=== PATIENT | male | born 1940 | race Caucasian/White ===

== ENCOUNTER 2017-03-11 15:42 | Outpatient (CLI) | payer MEDICARE, MEDICAID | END 2017-03-11 23:59 | disposition home or self-care (01) | LOC: RAD 15:42 | PROVIDERS: ATTEND Surgery | DX: M25.532 Pain in left wrist (principal) | CPT/HCPCS: 73110 ==

== ENCOUNTER 2017-10-11 10:32 | Outpatient (CLI) | payer MEDICARE, MEDICAID ==
[~2017-10-11] VITALS: Ht 177.8 cm; Wt 86.2 kg
[2017-10-11 11:36] LABS: BASOPHILS % (AUTO) 0.3 % (0-1); EOSINOPHILS # (AUTO) 0.1 X10'3 (0-0.9); EOSINOPHILS % (AUTO) 1.3 % (0-6); LYMPHOCYTES # (AUTO) 0.8 X10'3 (1.1-4.8); LYMPHOCYTES % (AUTO) 16.8 % (21-51); MEAN CORPUSCULAR HEMOGLOBIN 32.4 PG (27.0-31.0); MEAN CORPUSCULAR HGB CONC 33.4 % (33.0-36.5); MEAN PLATELET VOLUME 6.3 FL (7.4-10.4); MONOCYTES # (AUTO) 0.7 X10'3 (0-0.9); MONOCYTES % (AUTO) 16.2 % (2-12); NEUTROPHILS # (AUTO) 2.9 X10'3 (1.8-7.7); NEUTROPHILS % (AUTO) 65.4 % (42-75); PRE OP HEMATOCRIT 52.1 % (42.0-52.0); PRE OP HEMOGLOBIN 17.4 g/dL (14.0-17.9); PRE OP PLATELET COUNT 200 X10'3 (140-440); RED BLOOD COUNT 5.37 X10'6 (4.70-6.10); RED CELL DISTRIBUTION WIDTH 15.4 % (11.5-14.5)
[2017-10-11 11:55] LABS: ALBUMIN 3.4 G/DL (3.4-5.0); ALBUMIN/GLOBULIN RATIO 0.8 (1.1-1.5); ALKALINE PHOSPHATASE 94 IU/L (46-116); BLOOD UREA NITROGEN 7 MG/DL (7-18); BUN/CREATININE RATIO 7.7 (5.4-32.0); CALCIUM 8.6 MG/DL (8.5-10.1); CHLORIDE 87 MMOL/L (99-107); CREATININE 0.91 MG/DL (0.60-1.10); PRE OP ALT 50 U/L (30-65); PRE OP ANION GAP 7 (8-16); PRE OP AST 43 U/L (10-37); PRE OP BILIRUB, TOTAL 0.9 MG/DL (0.0-1.0); PRE OP GLUCOSE 103 MG/DL (70-104); PRE OP POTASSIUM 4.7 MMOL/L (3.4-5.1); TOTAL CARBON DIOXIDE 24.8 MMOL/L (24-32); TOTAL PROTEIN 7.5 G/DL (6.4-8.2); eGFR 81 ML/MIN
[2017-10-11 11:56] LABS: PRE OP SODIUM 119 MMOL/L (135-145)
[2017-10-11] MEDS ORDERED: LISI10TA4 PO (12:05)
[2017-10-11] MEDS ORDERED: SPIR50TA5 PO (12:05)
[2017-10-11] MEDS ORDERED: OMEP40CA37 PO (12:05)
[2017-10-11] MEDS ORDERED: VIT B 6 PO (15:59)
[2017-10-11] MEDS ORDERED: OMEG100T PO (15:59)
[2017-10-11] MEDS ORDERED: MULT-38 PO (15:59)
[2017-10-11] MEDS ORDERED: SODI1TAB23 PO (15:59)
[2017-10-11] MEDS ORDERED: ASPI-529 PO (15:59)
[2017-10-18] MEDS ORDERED: ringers solution, lacted 1,000 ML IV SCH (05:00)
[2017-10-18] MEDS ORDERED: Cefazolin 2GM/50ML dext iso,osmotic IVPB IV ONE (05:30)
[2017-10-18] MEDS ORDERED: famotidine 20mg tablet PO ONE (05:30)
== END 2017-10-11 23:59 | disposition home or self-care (01) ==
LOC: PRE-OP 10:32 → EDSTATUS 10-18 08:45
PROVIDERS: ATTEND Orthopaedic Surgery Hand Surgery
DX: Z01.812 Encounter for preprocedural laboratory examination (principal); S52.502P Unspecified fracture of the lower end of left radius, subsequent encounter for closed fracture with malunion; M25.532 Pain in left wrist; M12.532 Traumatic arthropathy, left wrist
CPT/HCPCS: 36415; 80053; 85025; 93005

== ENCOUNTER 2017-10-30 20:34 | Inpatient (IN) | payer MEDICARE, MEDICAID ==
[~2017-10-30] VITALS: Ht 180.3 cm; Wt 83.4 kg
[~2017-10-30 20:34] MED LIST: ASPI-529 PO; LISI10TA4 PO; MULT-38 PO; OMEG100T PO; OMEP40CA37 PO; SODI1TAB23 PO; SPIR50TA5 PO; VIT B 6 PO
[2017-10-30] MEDS ORDERED: CYAN50005 PO (23:02)
[2017-10-30] MEDS ORDERED: ALLO100T PO (23:02)
[2017-10-30] MEDS ORDERED: morphine 4 MG/ML inj SYRINge IV ONE (23:25)
[2017-10-30] MEDS ORDERED: ondansetron/PF 4mg/2ml inj IV ONE (23:25)
[2017-10-30] MEDS ORDERED: dextrose 5%-normal saline 1,000 ML IV SCH (23:25)
[2017-10-30] MEDS ORDERED: thiamine 100mg/ml 2ml inj. IV ONE (23:25)
[2017-10-30 23:43] LABS: BASOPHILS % (AUTO) 0.4 % (0-1); EOSINOPHILS # (AUTO) 0.1 X10'3 (0-0.9); EOSINOPHILS % (AUTO) 1.3 % (0-6); HEMATOCRIT 50.9 % (42.0-52.0); HEMOGLOBIN 16.6 g/dl (14.0-17.9); LYMPHOCYTES # (AUTO) 1.2 X10'3 (1.1-4.8); LYMPHOCYTES % (AUTO) 20.9 % (21-51); MEAN CORPUSCULAR HGB CONC 32.7 % (33.0-36.5); MEAN PLATELET VOLUME 6.8 FL (7.4-10.4); MONOCYTES # (AUTO) 0.6 X10'3 (0-0.9); MONOCYTES % (AUTO) 11.6 % (2-12); NEUTROPHILS # (AUTO) 3.7 X10'3 (1.8-7.7); NEUTROPHILS % (AUTO) 65.8 % (42-75); PLATELET COUNT 191 X10'3 (140-440); RED BLOOD COUNT 5.19 X10'6 (4.70-6.10); RED CELL DISTRIBUTION WIDTH 15.6 % (11.5-14.5); WHITE BLOOD COUNT 5.6 X10'3 (4.5-11.0)
[2017-10-30 23:53] LABS: INR 1.1 INR; PARTIAL THROMBOPLASTIN TIME 28 SECONDS (22-32); PROTHROMBIN TIME 10.9 SECONDS (9.0-12.0)
[2017-10-30 23:59] LABS: ALANINE AMINOTRANSFERASE 36 U/L (12-78); ALBUMIN 3.3 G/DL (3.4-5.0); ALBUMIN/GLOBULIN RATIO 0.9 (1.1-1.5); ALKALINE PHOSPHATASE 81 IU/L (46-116); ANION GAP 6 (8-16); ASPARTATE AMINO TRANSFERASE 31 U/L (10-37); BILIRUBIN,TOTAL 0.6 MG/DL (0.1-1.0); BLOOD UREA NITROGEN 12 MG/DL (7-18); BUN/CREATININE RATIO 12.1 (5.4-32.0); CALCIUM 8.8 MG/DL (8.5-10.1); CHLORIDE 94 MMOL/L (99-107); CREATINE KINASE 84 U/L (39-308); CREATININE 0.99 MG/DL (0.60-1.10); ETHANOL < 0.010 GM/DL (0.0-0.010); GLUCOSE 106 MG/DL (70-104); LIPASE 99 U/L (73-393); MAGNESIUM 1.9 MG/DL (1.5-2.4); POTASSIUM 4.5 MMOL/L (3.5-5.1); SODIUM 128 MMOL/L (135-145); TOTAL CARBON DIOXIDE 27.6 MMOL/L (24-32); eGFR 73 ML/MIN
[2017-10-31 01:58] LABS: CLARITY,URINE CLEAR (Clear); COLOR,URINE YELLOW (Yellow); GLUCOSE, URINE NEGATIVE (Neg); KETONES,URINE TRACE mg/dl (Neg); LEUKOCYTE ESTERASE ,URINE NEGATIVE (Neg); NITRITES, URINE NEGATIVE (Neg); OCCULT BLOOD,URINE NEGATIVE (Neg); PH,URINE 6.5 (4.8-8.0); PROTEIN,URINE NEGATIVE (Neg); UROBILINOGEN,URINE 0.2 E.U/dL (0.2-1.0)
[2017-10-31 02:00] LABS: UA COLLECTION TYPE VOIDED
[2017-10-31] MEDS ORDERED: acetaminophen 325mg tablet PO PRN ×2 (02:00)
[2017-10-31] MEDS ORDERED: morphine 2 MG/ML inj. syringe IV PRN (02:00)
[2017-10-31] MEDS ORDERED: HYDROmorphone 1 mg/ml syringe IV PRN ×2 (02:00)
[2017-10-31] MEDS ORDERED: HYDROcodone/acetaminophen 5mg/325mg tablet PO PRN (02:00)
[2017-10-31] MEDS ORDERED: ondansetron/PF 4mg/2ml inj IV PRN (02:00)
[2017-10-31] MEDS ORDERED: bisacodyl 10mg suppository rectal RC PRN (02:00)
[2017-10-31] MEDS ORDERED: acetaminophen 650mg rectal suppository RC PRN (02:00)
[2017-10-31] MEDS ORDERED: mag hydrox/Alum hydrox/simeth 30ml oral suspension PO PRN (02:00)
[2017-10-31] MEDS ORDERED: diphenhydrAMINE 50 mg/ml inj IV PRN (02:00)
[2017-10-31] MEDS ORDERED: metoclopramide 5 mg/ml inj IV PRN (02:00)
[2017-10-31] MEDS ORDERED: diphenhydrAMINE 25mg capsule PO PRN (02:00)
[2017-10-31 02:01] LABS: URINE AMPHETAMINE SCREEN NEGATIVE (Neg); URINE BARBITUATE SCREEN NEGATIVE (Neg); URINE BENZODIAZEPINES SCREEN NEGATIVE (Neg); URINE CANNABINOID SCREEN NEGATIVE (Neg); URINE COCAINE SCREEN NEGATIVE (Neg); URINE METHADONE SCREEN NEGATIVE (Neg); URINE OPIATE SCREEN POSITIVE (Neg); URINE PHENCYCLIDINE SCREEN NEGATIVE (Neg)
[2017-10-31] MEDS: normal saline 1000ml 1,000 ML IV SCH ×3 (03:44→19:59)
[2017-10-31] MEDS: HYDROcodone/acetaminophen 10/325mg tab PO PRN ×3 (05:34→15:57)
[2017-10-31] MEDS: docusate sod 100mg capsule PO SCH ×2 (09:04→19:58)
[2017-10-31] MEDS: pantoprazole 40mg Tablet.DR PO SCH (09:05)
[2017-10-31] MEDS: aspirin 81mg tab.chew PO SCH (09:05)
[2017-10-31] MEDS: allopurinol 300 MG tablet PO SCH (09:06)
[2017-10-31] MEDS: spironolactone 25 MG tablet PO SCH (09:06)
[2017-10-31] MEDS: multivitamins, therapeutics tablet PO SCH (09:06)
[2017-10-31 11:00] VITALS: BP 147/92
[2017-10-31 16:00] VITALS: BP 152/83
[2017-10-31 19:00] VITALS: BP_SYST 149; BP_SYST 153; BP_DIAS 68; BP_DIAS 92
[2017-10-31] MEDS: morphine 2 MG/ML inj. syringe IV PRN (20:00)
[2017-10-31] MEDS ORDERED: temazepam 15mg capsule PO PRN (21:00)
[2017-10-31 23:00] VITALS: BP 160/93
[2017-11-01] MEDS: morphine 2 MG/ML inj. syringe IV PRN ×4 (00:33→20:09)
[2017-11-01 03:00] VITALS: BP 149/92
[2017-11-01 05:55] LABS: BASOPHILS % (AUTO) 0.8 % (0-1); EOSINOPHILS # (AUTO) 0.3 X10'3 (0-0.9); EOSINOPHILS % (AUTO) 4.5 % (0-6); HEMATOCRIT 46.6 % (42.0-52.0); HEMOGLOBIN 15.6 g/dl (14.0-17.9); LYMPHOCYTES # (AUTO) 1.1 X10'3 (1.1-4.8); LYMPHOCYTES % (AUTO) 19.4 % (21-51); MEAN CORPUSCULAR HEMOGLOBIN 32.3 PG (27.0-31.0); MEAN CORPUSCULAR HGB CONC 33.4 % (33.0-36.5); MEAN CORPUSCULAR VOLUME 96.8 FL (78-98); MEAN PLATELET VOLUME 7.4 FL (7.4-10.4); MONOCYTES # (AUTO) 0.6 X10'3 (0-0.9); MONOCYTES % (AUTO) 10.9 % (2-12); NEUTROPHILS # (AUTO) 3.8 X10'3 (1.8-7.7); NEUTROPHILS % (AUTO) 64.4 % (42-75); PLATELET COUNT 175 X10'3 (140-440); RED BLOOD COUNT 4.81 X10'6 (4.70-6.10); RED CELL DISTRIBUTION WIDTH 15.7 % (11.5-14.5); WHITE BLOOD COUNT 5.9 X10'3 (4.5-11.0)
[2017-11-01 06:00] VITALS: BP 145/93
[2017-11-01] MEDS: normal saline 1000ml 1,000 ML IV SCH ×2 (06:40→20:06)
[2017-11-01 06:45] LABS: ALANINE AMINOTRANSFERASE 28 U/L (12-78); ALBUMIN 2.7 G/DL (3.4-5.0); ALBUMIN/GLOBULIN RATIO 0.8 (1.1-1.5); ALKALINE PHOSPHATASE 83 IU/L (46-116); ANION GAP 6 (8-16); ASPARTATE AMINO TRANSFERASE 34 U/L (10-37); BILIRUBIN,TOTAL 0.5 MG/DL (0.1-1.0); BLOOD UREA NITROGEN 6 MG/DL (7-18); BUN/CREATININE RATIO 6.6 (5.4-32.0); CALCIUM 7.8 MG/DL (8.5-10.1); CHLORIDE 100 MMOL/L (99-107); CREATININE 0.91 MG/DL (0.60-1.10); GLUCOSE 88 MG/DL (70-104); SODIUM 133 MMOL/L (135-145); TOTAL CARBON DIOXIDE 26.6 MMOL/L (24-32); eGFR 81 ML/MIN
[2017-11-01] MEDS: spironolactone 25 MG tablet PO SCH (08:35)
[2017-11-01] MEDS: aspirin 81mg tab.chew PO SCH (08:35)
[2017-11-01] MEDS: docusate sod 100mg capsule PO SCH ×2 (08:35→20:06)
[2017-11-01] MEDS: allopurinol 300 MG tablet PO SCH (08:35)
[2017-11-01] MEDS: multivitamins, therapeutics tablet PO SCH (08:36)
[2017-11-01] MEDS: pantoprazole 40mg Tablet.DR PO SCH (08:36)
[2017-11-01 11:00] VITALS: BP 139/82
[2017-11-01] MEDS: HYDROcodone/acetaminophen 10/325mg tab PO PRN (12:46)
[2017-11-01 19:00] VITALS: BP 156/89
[2017-11-01] MEDS: magnesium hydroxide 30ml (MOM) UD suspension PO PRN (20:13)
[2017-11-01 23:00] VITALS: BP 151/92
[2017-11-02] VITALS (7 sets, daily range): BP systolic 132–171; BP diastolic 65–96
[2017-11-02] MEDS: morphine 2 MG/ML inj. syringe IV PRN ×5 (00:30→19:39)
[2017-11-02 03:40] LABS: HEMATOCRIT 44.9 % (42.0-52.0); HEMOGLOBIN 15.1 g/dl (14.0-17.9); MEAN CORPUSCULAR HEMOGLOBIN 32.5 PG (27.0-31.0); MEAN CORPUSCULAR HGB CONC 33.5 % (33.0-36.5); MEAN PLATELET VOLUME 7.3 FL (7.4-10.4); PLATELET COUNT 165 X10'3 (140-440); RED BLOOD COUNT 4.63 X10'6 (4.70-6.10); RED CELL DISTRIBUTION WIDTH 15.7 % (11.5-14.5); WHITE BLOOD COUNT 4.7 X10'3 (4.5-11.0)
[2017-11-02 04:11] LABS: ALANINE AMINOTRANSFERASE 28 U/L (12-78); ALBUMIN 2.5 G/DL (3.4-5.0); ALBUMIN/GLOBULIN RATIO 0.8 (1.1-1.5); ALKALINE PHOSPHATASE 74 IU/L (46-116); ANION GAP 5 (8-16); ASPARTATE AMINO TRANSFERASE 30 U/L (10-37); BILIRUBIN,TOTAL 0.6 MG/DL (0.1-1.0); BLOOD UREA NITROGEN 7 MG/DL (7-18); BUN/CREATININE RATIO 8.9 (5.4-32.0); CALCIUM 7.7 MG/DL (8.5-10.1); CHLORIDE 100 MMOL/L (99-107); CREATININE 0.79 MG/DL (0.60-1.10); GLUCOSE 92 MG/DL (70-104); POTASSIUM 3.9 MMOL/L (3.5-5.1); SODIUM 132 MMOL/L (135-145); TOTAL CARBON DIOXIDE 26.6 MMOL/L (24-32); TOTAL PROTEIN 5.6 G/DL (6.4-8.2); eGFR > 90 ML/MIN
[2017-11-02 04:38] LABS: ANISOCYTOSIS 1+; PLATELET ESTIMATE NORMAL; TOTAL CELLS COUNTED 100
[2017-11-02] MEDS: spironolactone 25 MG tablet PO SCH (08:25)
[2017-11-02] MEDS: allopurinol 300 MG tablet PO SCH (08:25)
[2017-11-02] MEDS: aspirin 81mg tab.chew PO SCH (08:25)
[2017-11-02] MEDS: multivitamins, therapeutics tablet PO SCH (08:26)
[2017-11-02] MEDS: pantoprazole 40mg Tablet.DR PO SCH (08:26)
[2017-11-02] MEDS: docusate sod 100mg capsule PO SCH ×2 (08:26→19:35)
[2017-11-02] MEDS: normal saline 1000ml 1,000 ML IV SCH ×3 (08:29→19:35)
[2017-11-02] MEDS: magnesium hydroxide 30ml (MOM) UD suspension PO PRN (17:42)
[2017-11-03 03:00] VITALS: BP 132/76
[2017-11-03] MEDS: morphine 2 MG/ML inj. syringe IV PRN ×2 (03:12→07:54)
[2017-11-03 05:05] LABS: BASOPHILS % (AUTO) 0.3 % (0-1); EOSINOPHILS # (AUTO) 0.3 X10'3 (0-0.9); EOSINOPHILS % (AUTO) 5.6 % (0-6); HEMATOCRIT 48.1 % (42.0-52.0); LYMPHOCYTES # (AUTO) 1.4 X10'3 (1.1-4.8); MEAN CORPUSCULAR HEMOGLOBIN 32.3 PG (27.0-31.0); MEAN CORPUSCULAR HGB CONC 33.3 % (33.0-36.5); MEAN CORPUSCULAR VOLUME 96.9 FL (78-98); MEAN PLATELET VOLUME 7.8 FL (7.4-10.4); MONOCYTES # (AUTO) 0.6 X10'3 (0-0.9); NEUTROPHILS # (AUTO) 2.6 X10'3 (1.8-7.7); NEUTROPHILS % (AUTO) 53.1 % (42-75); PLATELET COUNT 171 X10'3 (140-440); RED BLOOD COUNT 4.97 X10'6 (4.70-6.10); WHITE BLOOD COUNT 4.9 X10'3 (4.5-11.0)
[2017-11-03 05:30] LABS: ALANINE AMINOTRANSFERASE 34 U/L (12-78); ALBUMIN 2.7 G/DL (3.4-5.0); ALBUMIN/GLOBULIN RATIO 0.8 (1.1-1.5); ALKALINE PHOSPHATASE 73 IU/L (46-116); ANION GAP 7 (8-16); ASPARTATE AMINO TRANSFERASE 30 U/L (10-37); BILIRUBIN,TOTAL 0.7 MG/DL (0.1-1.0); BLOOD UREA NITROGEN 8 MG/DL (7-18); BUN/CREATININE RATIO 9.5 (5.4-32.0); CALCIUM 8.2 MG/DL (8.5-10.1); CHLORIDE 98 MMOL/L (99-107); CREATININE 0.84 MG/DL (0.60-1.10); GLUCOSE 100 MG/DL (70-104); POTASSIUM 3.9 MMOL/L (3.5-5.1); SODIUM 131 MMOL/L (135-145); TOTAL CARBON DIOXIDE 26.1 MMOL/L (24-32); TOTAL PROTEIN 6.3 G/DL (6.4-8.2); eGFR 89 ML/MIN
[2017-11-03 06:00] VITALS: BP 142/90
[2017-11-03] MEDS: allopurinol 300 MG tablet PO SCH (07:54)
[2017-11-03] MEDS: multivitamins, therapeutics tablet PO SCH (07:55)
[2017-11-03] MEDS: aspirin 81mg tab.chew PO SCH (07:55)
[2017-11-03] MEDS: spironolactone 25 MG tablet PO SCH (07:55)
[2017-11-03] MEDS: pantoprazole 40mg Tablet.DR PO SCH (07:55)
[2017-11-03] MEDS: docusate sod 100mg capsule PO SCH ×2 (07:55→19:47)
[2017-11-03 11:00] VITALS: BP 147/87
[2017-11-03] MEDS: metoprolol succinate 25mg (24-HOUR) SR. Tablet PO SCH (11:22)
[2017-11-03 13:30] VITALS: BP 147/91
[2017-11-03] MEDS: HYDROcodone/acetaminophen 10/325mg tab PO PRN ×2 (18:21→23:30)
[2017-11-03 20:00] VITALS: BP 139/91
[2017-11-03 23:00] VITALS: BP 138/82
[2017-11-04] MEDS: HYDROcodone/acetaminophen 10/325mg tab PO PRN ×4 (04:28→19:16)
[2017-11-04] MEDS: cyclobenzaprine 10mg tablet PO PRN ×3 (04:28→22:19)
[2017-11-04 05:26] LABS: BASOPHILS # (AUTO) 0.1 X10'3 (0-0.2); BASOPHILS % (AUTO) 1.1 % (0-1); EOSINOPHILS # (AUTO) 0.3 X10'3 (0-0.9); EOSINOPHILS % (AUTO) 5.9 % (0-6); HEMATOCRIT 48.5 % (42.0-52.0); HEMOGLOBIN 16.2 g/dl (14.0-17.9); LYMPHOCYTES # (AUTO) 1.3 X10'3 (1.1-4.8); LYMPHOCYTES % (AUTO) 27.2 % (21-51); MEAN CORPUSCULAR HEMOGLOBIN 32.3 PG (27.0-31.0); MEAN CORPUSCULAR HGB CONC 33.4 % (33.0-36.5); MEAN CORPUSCULAR VOLUME 96.8 FL (78-98); MEAN PLATELET VOLUME 8.1 FL (7.4-10.4); MONOCYTES # (AUTO) 0.7 X10'3 (0-0.9); MONOCYTES % (AUTO) 13.4 % (2-12); NEUTROPHILS # (AUTO) 2.6 X10'3 (1.8-7.7); NEUTROPHILS % (AUTO) 52.4 % (42-75); PLATELET COUNT 176 X10'3 (140-440); RED BLOOD COUNT 5.01 X10'6 (4.70-6.10); RED CELL DISTRIBUTION WIDTH 15.9 % (11.5-14.5); WHITE BLOOD COUNT 4.9 X10'3 (4.5-11.0)
[2017-11-04 06:12] LABS: ALANINE AMINOTRANSFERASE 24 U/L (12-78); ALBUMIN 2.6 G/DL (3.4-5.0); ALBUMIN/GLOBULIN RATIO 0.7 (1.1-1.5); ALKALINE PHOSPHATASE 71 IU/L (46-116); ANION GAP 9 (8-16); ASPARTATE AMINO TRANSFERASE 29 U/L (10-37); BILIRUBIN,TOTAL 0.5 MG/DL (0.1-1.0); BLOOD UREA NITROGEN 9 MG/DL (7-18); BUN/CREATININE RATIO 10.3 (5.4-32.0); CALCIUM 8.6 MG/DL (8.5-10.1); CHLORIDE 100 MMOL/L (99-107); CREATININE 0.87 MG/DL (0.60-1.10); GLUCOSE 87 MG/DL (70-104); POTASSIUM 4.1 MMOL/L (3.5-5.1); SODIUM 135 MMOL/L (135-145); TOTAL CARBON DIOXIDE 25.9 MMOL/L (24-32); TOTAL PROTEIN 6.1 G/DL (6.4-8.2); eGFR 85 ML/MIN
[2017-11-04] MEDS: aspirin 81mg tab.chew PO SCH (08:12)
[2017-11-04] MEDS: pantoprazole 40mg Tablet.DR PO SCH (08:12)
[2017-11-04] MEDS: spironolactone 25 MG tablet PO SCH (08:12)
[2017-11-04] MEDS: docusate sod 100mg capsule PO SCH ×2 (08:12→19:16)
[2017-11-04] MEDS: allopurinol 300 MG tablet PO SCH (08:12)
[2017-11-04] MEDS: multivitamins, therapeutics tablet PO SCH (08:12)
[2017-11-04] MEDS: metoprolol succinate 25mg (24-HOUR) SR. Tablet PO SCH (08:12)
[2017-11-04 11:28] VITALS: BP 124/82
[2017-11-04 20:00] VITALS: BP 143/90
[2017-11-05 00:27] VITALS: BP 133/89
[2017-11-05] MEDS: HYDROcodone/acetaminophen 10/325mg tab PO PRN ×3 (03:21→17:27)
[2017-11-05 05:58] LABS: BASOPHILS # (AUTO) 0.1 X10'3 (0-0.2); EOSINOPHILS # (AUTO) 0.4 X10'3 (0-0.9); EOSINOPHILS % (AUTO) 7.2 % (0-6); HEMATOCRIT 47.1 % (42.0-52.0); HEMOGLOBIN 15.6 g/dl (14.0-17.9); LYMPHOCYTES # (AUTO) 1.3 X10'3 (1.1-4.8); LYMPHOCYTES % (AUTO) 25.6 % (21-51); MEAN CORPUSCULAR HEMOGLOBIN 32.4 PG (27.0-31.0); MEAN CORPUSCULAR HGB CONC 33.2 % (33.0-36.5); MEAN CORPUSCULAR VOLUME 97.4 FL (78-98); MEAN PLATELET VOLUME 7.2 FL (7.4-10.4); MONOCYTES # (AUTO) 0.7 X10'3 (0-0.9); MONOCYTES % (AUTO) 13.3 % (2-12); NEUTROPHILS # (AUTO) 2.6 X10'3 (1.8-7.7); NEUTROPHILS % (AUTO) 52.9 % (42-75); PLATELET COUNT 181 X10'3 (140-440); RED BLOOD COUNT 4.83 X10'6 (4.70-6.10); RED CELL DISTRIBUTION WIDTH 15.9 % (11.5-14.5); WHITE BLOOD COUNT 4.9 X10'3 (4.5-11.0)
[2017-11-05 06:17] LABS: ALANINE AMINOTRANSFERASE 39 U/L (12-78); ALBUMIN 2.5 G/DL (3.4-5.0); ALBUMIN/GLOBULIN RATIO 0.7 (1.1-1.5); ALKALINE PHOSPHATASE 73 IU/L (46-116); ANION GAP 9 (8-16); ASPARTATE AMINO TRANSFERASE 33 U/L (10-37); BILIRUBIN,TOTAL 0.6 MG/DL (0.1-1.0); BLOOD UREA NITROGEN 13 MG/DL (7-18); BUN/CREATININE RATIO 16.7 (5.4-32.0); CALCIUM 8.1 MG/DL (8.5-10.1); CHLORIDE 99 MMOL/L (99-107); CREATININE 0.78 MG/DL (0.60-1.10); GLUCOSE 90 MG/DL (70-104); POTASSIUM 3.8 MMOL/L (3.5-5.1); SODIUM 133 MMOL/L (135-145); TOTAL CARBON DIOXIDE 25.2 MMOL/L (24-32); TOTAL PROTEIN 5.9 G/DL (6.4-8.2); eGFR > 90 ML/MIN
[2017-11-05 07:34] VITALS: BP 131/81
[2017-11-05] MEDS: spironolactone 25 MG tablet PO SCH (09:06)
[2017-11-05] MEDS: aspirin 81mg tab.chew PO SCH (09:06)
[2017-11-05] MEDS: docusate sod 100mg capsule PO SCH (09:06)
[2017-11-05] MEDS: pantoprazole 40mg Tablet.DR PO SCH (09:06)
[2017-11-05] MEDS: metoprolol succinate 25mg (24-HOUR) SR. Tablet PO SCH (09:06)
[2017-11-05] MEDS: multivitamins, therapeutics tablet PO SCH (09:06)
[2017-11-05] MEDS: allopurinol 300 MG tablet PO SCH (09:07)
[2017-11-05 11:30] VITALS: BP 132/82
== END 2017-11-05 17:48 | DRG 552 ==
LOC: ER 20:35 → ED HOLD 10-31 01:57 → EDBEDREQ 10-31 09:47 → S STAY 10-31 11:00 → PCU 3S 10-31 16:06 → SUR 3N 11-03 12:50
PROVIDERS: ADMIT Family Medicine; ATTEND Internal Medicine
DX: M47.896 Other spondylosis, lumbar region (principal); E87.1 Hypo-osmolality and hyponatremia; K31.9 Disease of stomach and duodenum, unspecified; I10 Essential (primary) hypertension; M54.5 Low back pain; M65.9 Synovitis and tenosynovitis, unspecified; M19.90 Unspecified osteoarthritis, unspecified site; E86.0 Dehydration; F10.20 Alcohol dependence, uncomplicated; Z86.73 Personal history of transient ischemic attack (TIA), and cerebral infarction without residual deficits
CPT/HCPCS: 36415; 71045; 72100; 72148; 72195; 73502; 80053; 80305; 80320; 81003; 82140; 82550; 83690; 83735; 84484; 85025; 85610; 85730; 87070; 93005; 96361; 96374; 96375; 97162; 97530; 99285; J2270; J2405; J3411; J7030; J7042

== ENCOUNTER 2018-01-27 12:11 | Inpatient (IN) | payer MEDICARE, MEDICAID ==
[~2018-01-27] VITALS: Ht 180.3 cm; Wt 83.0 kg
[~2018-01-27 12:11] MED LIST changes: +ALLO100T PO; +CYAN50005 PO; -VIT B 6 PO
[2018-01-27] MEDS ORDERED: aspirin 81mg tab.chew PO ONE (12:20)
[2018-01-27 12:41] LABS: BASOPHILS # (AUTO) 0.1 X10'3 (0-0.2); BASOPHILS % (AUTO) 0.7 % (0-1); EOSINOPHILS # (AUTO) 0.1 X10'3 (0-0.9); EOSINOPHILS % (AUTO) 1.6 % (0-6); HEMATOCRIT 41.1 % (42.0-52.0); HEMOGLOBIN 13.7 g/dl (14.0-17.9); LYMPHOCYTES % (AUTO) 12.6 % (21-51); MEAN CORPUSCULAR HEMOGLOBIN 33.6 PG (27.0-31.0); MEAN CORPUSCULAR HGB CONC 33.3 % (33.0-36.5); MEAN CORPUSCULAR VOLUME 100.9 FL (78-98); MEAN PLATELET VOLUME 6.3 FL (7.4-10.4); MONOCYTES # (AUTO) 0.7 X10'3 (0-0.9); MONOCYTES % (AUTO) 8.8 % (2-12); NEUTROPHILS # (AUTO) 6.1 X10'3 (1.8-7.7); NEUTROPHILS % (AUTO) 76.3 % (42-75); PLATELET COUNT 201 X10'3 (140-440); RED BLOOD COUNT 4.07 X10'6 (4.70-6.10); RED CELL DISTRIBUTION WIDTH 15.8 % (11.5-14.5)
[2018-01-27] MEDS ORDERED: iohexol 350MG/ML 100ml bottle IV ONE (13:02)
[2018-01-27 13:08] LABS: ALANINE AMINOTRANSFERASE 22 U/L (12-78); ALBUMIN 2.8 G/DL (3.4-5.0); ALBUMIN/GLOBULIN RATIO 0.8 (1.1-1.5); ALKALINE PHOSPHATASE 73 IU/L (46-116); ANION GAP 9 (8-16); ASPARTATE AMINO TRANSFERASE 48 U/L (10-37); BILIRUBIN,TOTAL 0.6 MG/DL (0.1-1.0); BLOOD UREA NITROGEN 9 MG/DL (7-18); CALCIUM 8.3 MG/DL (8.5-10.1); CHLORIDE 97 MMOL/L (99-107); CREATININE 0.82 MG/DL (0.60-1.10); GLUCOSE 109 MG/DL (70-104); MAGNESIUM 1.7 MG/DL (1.5-2.4); POTASSIUM 3.9 MMOL/L (3.5-5.1); SODIUM 133 MMOL/L (135-145); TOTAL CARBON DIOXIDE 27.5 MMOL/L (24-32); TOTAL PROTEIN 6.1 G/DL (6.4-8.2); eGFR > 90 ML/MIN
[2018-01-27] MEDS ORDERED: heparin 10,000 units/1 ML INJ IV PRN ×2 (13:15→15:40)
[2018-01-27] MEDS ORDERED: heparin 10,000 units/1 ML INJ IV ONE (13:15)
[2018-01-27] MEDS: heparin 25,000 UNIT/250ml bag 250 ML IV SCH ×2 (13:37→20:30)
[2018-01-27] MEDS ORDERED: METO25TA6 PO (13:42)
[2018-01-27] MEDS ORDERED: morphine 2 MG/ML inj. syringe IV PRN ×2 (15:35)
[2018-01-27] MEDS ORDERED: ondansetron/PF 4mg/2ml inj IV PRN (15:35)
[2018-01-27] MEDS ORDERED: potassium Cl 40MEQ/NS 500ml 500 ML IV PRN ×2 (15:35)
[2018-01-27] MEDS ORDERED: potassium Cl 20 mEq SR tablet PO PRN ×2 (15:35)
[2018-01-27] MEDS ORDERED: ipratropium/albuterol 3ml nebule NEB PRN (15:35)
[2018-01-27] MEDS ORDERED: mag hydrox/Alum hydrox/simeth 30ml oral suspension PO PRN (15:35)
[2018-01-27] MEDS ORDERED: docusate sod 100mg capsule PO PRN (15:35)
[2018-01-27] MEDS ORDERED: acetaminophen 325mg tablet PO PRN (15:35)
[2018-01-27] MEDS ORDERED: magnesium 4gm in 100ml NS 100 ML IV PRN (15:35)
[2018-01-27] MEDS ORDERED: heparin 25,000 UNIT/250ml bag 250 ML IV SCH (15:39)
[2018-01-27] MEDS ORDERED: morphine 4 MG/ML inj SYRINge IV PRN ×2 (15:52→15:53)
[2018-01-27] MEDS: tirofiban 5mg in NS 100mL 100 ML IV SCH ×2 (18:05→20:53)
[2018-01-27 20:40] VITALS: BP 147/80
[2018-01-27 22:00] VITALS: BP 133/76
[2018-01-27 23:00] VITALS: BP 133/76
[2018-01-28] VITALS (13 sets, daily range): BP systolic 99–142; BP diastolic 56–83
[2018-01-28] MEDS: tirofiban 5mg in NS 100mL 100 ML IV SCH ×3 (01:26→14:53)
[2018-01-28 03:12] LABS: BASOPHILS # (AUTO) 0.1 X10'3 (0-0.2); BASOPHILS % (AUTO) 0.9 % (0-1); EOSINOPHILS # (AUTO) 0.2 X10'3 (0-0.9); EOSINOPHILS % (AUTO) 2.8 % (0-6); HEMATOCRIT 41.5 % (42.0-52.0); HEMOGLOBIN 13.9 g/dl (14.0-17.9); LYMPHOCYTES # (AUTO) 1.3 X10'3 (1.1-4.8); LYMPHOCYTES % (AUTO) 16.4 % (21-51); MEAN CORPUSCULAR HEMOGLOBIN 33.7 PG (27.0-31.0); MEAN CORPUSCULAR HGB CONC 33.4 % (33.0-36.5); MEAN PLATELET VOLUME 7.5 FL (7.4-10.4); MONOCYTES # (AUTO) 0.7 X10'3 (0-0.9); MONOCYTES % (AUTO) 8.5 % (2-12); NEUTROPHILS # (AUTO) 5.6 X10'3 (1.8-7.7); NEUTROPHILS % (AUTO) 71.4 % (42-75); PLATELET COUNT 179 X10'3 (140-440); RED BLOOD COUNT 4.11 X10'6 (4.70-6.10); RED CELL DISTRIBUTION WIDTH 16.1 % (11.5-14.5); WHITE BLOOD COUNT 7.9 X10'3 (4.5-11.0)
[2018-01-28 03:25] LABS: ALANINE AMINOTRANSFERASE 27 U/L (12-78); ALBUMIN 2.7 G/DL (3.4-5.0); ALBUMIN/GLOBULIN RATIO 0.9 (1.1-1.5); ALKALINE PHOSPHATASE 71 IU/L (46-116); ANION GAP 9 (8-16); ASPARTATE AMINO TRANSFERASE 98 U/L (10-37); BILIRUBIN,TOTAL 0.8 MG/DL (0.1-1.0); BLOOD UREA NITROGEN 8 MG/DL (7-18); BUN/CREATININE RATIO 11.1 (5.4-32.0); CALCIUM 8.2 MG/DL (8.5-10.1); CHLORIDE 99 MMOL/L (99-107); CHOL/HDL RATIO 3.5 (0.00-4.99); CHOLESTEROL 129 MG/DL (0-200); CREATININE 0.72 MG/DL (0.60-1.10); GLUCOSE 92 MG/DL (70-104); HDL CHOLESTEROL 37 MG/DL (35-60); LDL CHOLESTEROL 82 MG/DL (50-100); MAGNESIUM 1.6 MG/DL (1.5-2.4); POTASSIUM 3.6 MMOL/L (3.5-5.1); SODIUM 134 MMOL/L (135-145); TOTAL CARBON DIOXIDE 26.1 MMOL/L (24-32); TOTAL PROTEIN 5.8 G/DL (6.4-8.2); TRIGLYCERIDES 64 MG/DL (20-135); eGFR > 90 ML/MIN
[2018-01-28] MEDS: atorvastatin 20mg tablet PO SCH (07:16)
[2018-01-28] MEDS: multivitamins, therapeutics tablet PO SCH (07:16)
[2018-01-28] MEDS: aspirin 81mg tablet.DR PO SCH (07:17)
[2018-01-28] MEDS: metoprolol tartrate 25mg tablet PO SCH ×2 (07:17→19:10)
[2018-01-28] MEDS: allopurinol 300 MG tablet PO SCH (07:18)
[2018-01-28] MEDS: cyanocobalamin 500mcg tablet PO SCH (07:18)
[2018-01-28] MEDS: K and/or MAG REPLACEMENT MC SCH (07:54)
[2018-01-28] MEDS ORDERED: CYANOCOBALAMIN 5000 MCG PO SCH (08:00)
[2018-01-28] MEDS ORDERED: OMEGA 3 FATTY ACIDS PO SCH (08:00)
[2018-01-28] MEDS ORDERED: non-formulary drug (Multivitamin (Daily Multiple Vitamin) 1 TAB) PO SCH (08:00)
[2018-01-28] MEDS: heparin 25,000 UNIT/250ml bag 250 ML IV SCH (14:53)
[2018-01-28] MEDS ORDERED: midazolam 2 mg/2 ml injection ONE (15:58)
[2018-01-28] MEDS ORDERED: iohexol 350MG/ML 100ml bottle IV ONE (15:58)
[2018-01-28] MEDS ORDERED: LIDOcaine 1% (10mg/ml)w/preservative injection 20ml MDV ONE (15:58)
[2018-01-28] MEDS ORDERED: fentaNYL/PF 50MCG/1 ML 2ML syringe ONE (15:58)
[2018-01-28] MEDS ORDERED: LORazepam 1 MG tablet PO PRN (17:00)
[2018-01-28] MEDS ORDERED: LORazepam 2 mg/ml vial IV PRN (17:00)
[2018-01-28] MEDS ORDERED: iohexol 350 MG/ML 50ML vial IV ONE ×2 (17:40→17:57)
[2018-01-28] MEDS ORDERED: heparin 1,000unit/ml 10ml vial 10 ML ONE (17:40)
[2018-01-28] MEDS ORDERED: ticagrelor 90mg tablet ONE (18:02)
[2018-01-28] MEDS ORDERED: HYDROcodone/acetaminophen 10/325mg tab PO PRN (19:00)
[2018-01-28] MEDS ORDERED: nitroGLYCERIN 0.4mg SUBLingual tab SL PRN (19:00)
[2018-01-28] MEDS ORDERED: OXAZEpam 15mg capsule PO PRN (19:00)
[2018-01-28] MEDS ORDERED: HYDROcodone/acetaminophen 5mg/325mg tablet PO PRN (19:00)
[2018-01-29 03:00] VITALS: BP 118/77
[2018-01-29 06:00] VITALS: BP 141/89
[2018-01-29 06:05] LABS: ALANINE AMINOTRANSFERASE 21 U/L (12-78); ALBUMIN 2.5 G/DL (3.4-5.0); ALBUMIN/GLOBULIN RATIO 0.8 (1.1-1.5); ALKALINE PHOSPHATASE 61 IU/L (46-116); ANION GAP 8 (8-16); ASPARTATE AMINO TRANSFERASE 51 U/L (10-37); BILIRUBIN,TOTAL 1.1 MG/DL (0.1-1.0); BLOOD UREA NITROGEN 10 MG/DL (7-18); BUN/CREATININE RATIO 13.5 (5.4-32.0); CHLORIDE 99 MMOL/L (99-107); CREATININE 0.74 MG/DL (0.60-1.10); GLUCOSE 88 MG/DL (70-104); MAGNESIUM 1.6 MG/DL (1.5-2.4); POTASSIUM 3.6 MMOL/L (3.5-5.1); SODIUM 132 MMOL/L (135-145); TOTAL CARBON DIOXIDE 24.7 MMOL/L (24-32); TOTAL PROTEIN 5.7 G/DL (6.4-8.2); eGFR > 90 ML/MIN
[2018-01-29 06:15] LABS: BASOPHILS % (AUTO) 0.2 % (0-1); EOSINOPHILS # (AUTO) 0.2 X10'3 (0-0.9); EOSINOPHILS % (AUTO) 3.5 % (0-6); HEMATOCRIT 41.2 % (42.0-52.0); HEMOGLOBIN 13.9 g/dl (14.0-17.9); LYMPHOCYTES # (AUTO) 1.1 X10'3 (1.1-4.8); LYMPHOCYTES % (AUTO) 16.6 % (21-51); MEAN CORPUSCULAR HEMOGLOBIN 33.9 PG (27.0-31.0); MEAN CORPUSCULAR HGB CONC 33.7 % (33.0-36.5); MEAN CORPUSCULAR VOLUME 100.7 FL (78-98); MEAN PLATELET VOLUME 7.4 FL (7.4-10.4); MONOCYTES # (AUTO) 0.9 X10'3 (0-0.9); MONOCYTES % (AUTO) 13.7 % (2-12); NEUTROPHILS # (AUTO) 4.5 X10'3 (1.8-7.7); PLATELET COUNT 188 X10'3 (140-440); RED BLOOD COUNT 4.09 X10'6 (4.70-6.10); RED CELL DISTRIBUTION WIDTH 15.8 % (11.5-14.5); WHITE BLOOD COUNT 6.9 X10'3 (4.5-11.0)
[2018-01-29] MEDS: cyanocobalamin 500mcg tablet PO SCH (07:41)
[2018-01-29] MEDS: multivitamins, therapeutics tablet PO SCH (07:42)
[2018-01-29] MEDS: atorvastatin 20mg tablet PO SCH (07:42)
[2018-01-29] MEDS: allopurinol 300 MG tablet PO SCH (07:42)
[2018-01-29] MEDS: aspirin 81mg tablet.DR PO SCH (07:42)
[2018-01-29 07:46] VITALS: BP_SYST 141
[2018-01-29] MEDS: metoprolol tartrate 25mg tablet PO SCH (07:46)
[2018-01-29] MEDS: K and/or MAG REPLACEMENT MC SCH (07:49)
[2018-01-29] MEDS ORDERED: ticagrelor 90mg tablet PO SCH (08:00)
[2018-01-29] MEDS ORDERED: TICA90TA PO (09:27)
[2018-01-29] MEDS ORDERED: METO25TA6 PO (09:27)
[2018-01-29] MEDS ORDERED: ATOR20TA66 PO (09:27)
== END 2018-01-29 12:00 | disposition home health service (06) | DRG 247 ==
LOC: ER 12:11 → ED HOLD 15:31 → MED 3N 20:53
PROVIDERS: ADMIT Family Medicine; ATTEND Family Medicine
PROC: 4A023N7 Measurement of Cardiac Sampling and Pressure, Left Heart, Percutaneous Approach (ICD-10-PCS; principal; 2018-01-28)
PROC: 027135Z Dilation of Coronary Artery, Two Arteries with Two Drug-eluting Intraluminal Devices, Percutaneous Approach (ICD-10-PCS; 2018-01-28)
PROC: B2111ZZ Fluoroscopy of Multiple Coronary Arteries using Low Osmolar Contrast (ICD-10-PCS; 2018-01-28)
PROC: B2151ZZ Fluoroscopy of Left Heart using Low Osmolar Contrast (ICD-10-PCS; 2018-01-28)
DX: I21.4 Non-ST elevation (NSTEMI) myocardial infarction (principal); E87.1 Hypo-osmolality and hyponatremia; R29.6 Repeated falls; I10 Essential (primary) hypertension; I25.9 Chronic ischemic heart disease, unspecified; K21.9 Gastro-esophageal reflux disease without esophagitis; M10.9 Gout, unspecified; G89.29 Other chronic pain; M51.36 Other intervertebral disc degeneration, lumbar region; Z79.82 Long term (current) use of aspirin; Z79.899 Other long term (current) drug therapy; Z86.73 Personal history of transient ischemic attack (TIA), and cerebral infarction without residual deficits; Z87.74 Personal history of (corrected) congenital malformations of heart and circulatory system; Z80.9 Family history of malignant neoplasm, unspecified
CPT/HCPCS: 93306; 93458; 96374; 99285; C9600; 36415; 71045; 80053; 80061; 83735; 83880; 84484; 85025; 85730; 87070; 93005; 94667; 94760; 99152; 99153; A4620; A6257; C1725; C1760; C1769; C1874; G0378; J1644; J2001; J2250; J3010; J3246; Q9967